=== PATIENT | female | born 1975 | race Caucasian/White ===

== ENCOUNTER 2023-06-30 07:37 | Day surgery (SDC) | payer OTHER ==
[2023-06-24 15:57] VITALS: BMI 28.1
[2023-06-30 10:22] VITALS: RESP 16; TEMP 97.8
[2023-06-30 10:37] VITALS: BP 122/74; PULSE 88
== END 2023-06-30 10:46 | disposition home or self-care (01) ==
LOC: FASU-ENDO 07:37
PROVIDERS: ATTEND Internal Medicine Gastroenterology
PROC: 0DJD8ZZ Inspection of Lower Intestinal Tract, Via Natural or Artificial Opening Endoscopic (ICD-10-PCS; principal; 2023-06-30 09:52)
DX: Z12.11 Encounter for screening for malignant neoplasm of colon (principal)
CPT/HCPCS: 81025